=== PATIENT | male | born 1990 ===

== ENCOUNTER 2024-02-23 10:31 | Emergency (ER) | payer SELFPAY ==
[~2024-02-23] VITALS: Ht 165.1 cm; Wt 73.0 kg
[2024-02-23 10:38] VITALS: TEMP 98.7
[2024-02-23 11:00] VITALS: BP 125/92
[2024-02-23 11:58] LABS: BASO % 0.8 % (0.0-2.0); EOS # 0.2 K/mm3 (0.0-0.7); GRAN # 3.2 K/mm3 (1.4-6.5); HEMATOCRIT 42.7 % (42.0-52.0); HEMOGLOBIN 15.6 g/dl (13.5-18.0); LYMPH # 1.4 K/mm3 (1.2-3.4); LYMPH % 26.6 % (20.0-51.0); MEAN CELL VOLUME 90 fl (80.0-100.0); MEAN CORPUSCULAR HEMOGLOBIN 33 pg (27-31); MEAN CORPUSCULAR HGB CONC 37 g/dl (33.0-37.0); MEAN PLATELET VOLUME 8.8 fl (7.4-10.4); MONO # 0.5 K/mm3 (0.1-0.6); PLATELET COUNT 195 K/mm3 (130-400); RED BLOOD COUNT 4.75 M/mm3 (4.20-5.60); REDCELL DISTRIBUTION WIDTH-CV 12.6 % (11.5-14.5)
[2024-02-23 12:00] LABS: ALBUMIN 3.6 g/dL (3.5-5.0); BILIRUBIN,TOTAL 0.6 mg/dL (0.2-1.2); CALCIUM 9.3 mg/dL (8.4-10.2); CREATININE, serum 0.93 mg/dL (0.72-1.25); POTASSIUM 3.6 mEq/L (3.5-4.5); TOTAL PROTEIN 6.4 g/dl (6.2-8.1)
[2024-02-23] MEDS ORDERED: NORCO 325 MG-51 TAB PO (12:40)
[2024-02-23 13:03] VITALS: PULSE 55
== END 2024-02-23 13:04 | disposition home or self-care (01) ==
LOC: COL.ER 10:31
PROVIDERS: Personal Emergency Response Attendant
DX: S70.11XA Contusion of right thigh, initial encounter (principal); X58.XXXA Exposure to other specified factors, initial encounter; Y92.89 Other specified places as the place of occurrence of the external cause; Y99.0 Civilian activity done for income or pay